=== PATIENT | female | born 2000 | race Caucasian/White ===

== ENCOUNTER 2022-06-13 18:35 | Emergency (ER) | payer OTHER, BC ==
[2022-06-13] MEDS ORDERED: Boostrix 0.5 ML (Tdap) VIAL (>/=7 yrs of age) ONE (19:32)
[2022-06-13] MEDS ORDERED: Amoxicillin/Potassium Clav 500 MG TAB ONE (19:41)
== END 2022-06-13 19:54 | disposition home or self-care (01) ==
LOC: NAV ERS 18:35
DX: S61.411A Laceration without foreign body of right hand, initial encounter (principal); W54.0XXA Bitten by dog, initial encounter
CPT/HCPCS: 12001; 90471; 90715